=== PATIENT | male | born 1985 | race Caucasian/White ===

== ENCOUNTER 2019-01-05 01:42 | Emergency (ER) | payer OTHER ==
[2019-01-05] MEDS ORDERED: METHYLPREDNISOLONE 125 MG INJ ONE (02:11)
[2019-01-05] MEDS ORDERED: NA CHLORIDE 0.9% 1,000 ML ONE (02:12)
[2019-01-05] MEDS ORDERED: DIPHENHYDRAMINE 50 MG/ML VIAL ONE (02:12)
[2019-01-05] MEDS ORDERED: FAMOTIDINE 20 MG/2 ML VIAL IV ONE (02:12)
[2019-01-05] MEDS ORDERED: predniSONE 20 MG TAB ONE (02:12)
[2019-01-05 02:29] LABS: Basophils % 1.1 % (0-1.3); Eosinophils % 4.3 % (0-4.4); Hematocrit 41.7 % (39.6-49.0); Lymphocytes % 44.6 % (15.3-44.8); MPV 8.4 fL (7.6-11.3); Monocytes % 8.5 % (3.3-12.3); RBC Red Blood Cell Count 4.53 M/uL (4.33-5.43)
[2019-01-05 02:47] LABS: ALT/SGPT 34 U/L (12-78); AST/SGOT 22 U/L (15-37); Alkaline Phosphatase 68 U/L (45-117); BUN Blood Urea Nitrogen 12 mg/dL (7-18); Bicarbonate 28 mmol/L (21-32); Bilirubin Total 0.4 mg/dL (0.2-1.0); Glucose Level 98 mg/dL (74-106); Potassium 3.5 mmol/L (3.5-5.1); Protein, Total 7.3 g/dL (6.4-8.2); Sodium Level 141 mmol/L (136-145)
--- NOTE | 2019-01-05 02:59 | ER ---
Nurse's Notes [facility] Name: Juanito Dawn Age: 34 yrs Sex: Male : 1985 Arrival Date: 01/05/2019 Time: 01:44 Bed 7 Private MD: Diagnosis: Nonmedicinal substance allergy status;Allergy status, other than to drugs and biological substances Presentation: 01/05 01:51 Presenting complaint: Patient states: "I went to bed and the corner of my lip was jd3 swelling. I woke up just now and it was worse.". Transition of care: patient was not received from another setting of care. Onset: The symptoms/episode began/occurred 2200 yesterday night. Anaphylaxis evaluation, no signs or symptoms of anaphylaxis were noted. Onset of symptoms was January 05, 2019. Risk Assessment: Do you want to hurt yourself or someone else? Patient reports no desire to harm self or others. Initial Sepsis Screen: Does the patient meet any 2 criteria? No. Patient's initial sepsis screen is negative. Does the patient have a suspected source of infection? No. Patient's initial sepsis screen is negative. Care prior to arrival: None. 01:51 Acuity: JARETT 3 jd3 01:51 Method Of Arrival: Ambulatory jd3 Triage Assessment: 01:56 General: Appears in no apparent distress. uncomfortable, Behavior is calm, cooperative, jd3 appropriate for age. Pain: Denies pain. Historical: - Allergies: 01:54 No Known Allergies; jd3 - Home Meds: 01:54 Zoloft Oral [Active]; Imitrex Oral [Active]; jd3 - PSHx: 01:54 None; jd3 - Immunization history:: Adult Immunizations up to date. - Social history:: Smoking status: Patient/guardian denies using tobacco. - Family history:: not pertinent. - Ebola Screening: : Patient negative for fever greater than or equal to 101.5 degrees Fahrenheit, and additional compatible Ebola Virus Disease symptoms. Screenin:50 Abuse screen: Denies threats or abuse. Nutritional screening: No deficits noted. bb Tuberculosis screening: No symptoms or risk factors identified. Fall Risk None identified. Assessment: 01:50 General: Appears in no apparent distress. uncomfortable, Behavior is calm, cooperative, bb Reports swelling to upper lip and face. Pain: Denies pain. Neuro: Level of Consciousness is awake, alert, obeys commands, Oriented to person, place, time, situation. Cardiovascular: Heart tones S1 S2 present Capillary refill < 3 seconds Patient's skin is warm and dry. Respiratory: Airway is patent Respiratory effort is even, unlabored, Respiratory pattern is regular, Breath sounds are clear bilaterally. GI: No signs and/or symptoms were reported involving the gastrointestinal system. EENT: angioedema noted with swelling to upper lip and face. Derm: Skin is pink, warm \\T\\ dry. Musculoskeletal: Circulation, motion, and sensation intact. 01:50 EENT: no swelling to tongue. bb 03:02 Reassessment: Patient and/or family updated on plan of care and expected duration. Pain bb level reassessed. Patient is alert, oriented x 3, equal unlabored respirations, skin warm/dry/pink. edema to upper lip and face has decreased significantly. 03:08 Reassessment: Patient appears in no apparent distress at this time. Patient and/or jd3 family updated on plan of care and expected duration. Pain level reassessed. Patient is alert, oriented x 3, equal unlabored respirations, skin warm/dry/pink. decrease swelling noted in lips. Patient states feeling better. Respiratory: Airway is patent Respiratory effort is even, unlabored, Respiratory pattern is regular, symmetrical, Denies cough, shortness of breath. Vital Signs: 01:54 BP 125 / 81; Pulse 68; Resp 19 S; Pulse Ox 98% on R/A; Weight 61.23 kg (R); Height 5 jd3 ft. 1 in. (157 cm) (R); Pain 0/10; 02:22 BP 121 / 88; Pulse 71; Resp 16 S; Pulse Ox 100% on R/A; bb 01:54 Body Mass Index 24.84 (61.23 kg, 157 cm) d3 ED Course: 01:44 Patient arrived in ED. am2 01:46 Delbert Taveras MD is Attending Physician. miguelito 01:50 Patient has correct armband on for positive identification. Bed in low position. Call bb light in reach. Side rails up X 1. Pulse ox on. NIBP on. Warm blanket given. Pillow given. 01:53 Triage completed. j 01:55 Initial lab(s) drawn, by me, sent to lab. Inserted saline lock: 20 gauge in right bb antecubital area, using aseptic technique. Blood collected. 01:56 Arm band placed on. jd3 02:17 Grecia Kwan, RN is Primary Nurse. bb 03:09 No provider procedures requiring assistance completed. IV discontinued, intact, jd3 bleeding controlled, No redness/swelling at site. Pressure dressing applied. Administered Medications: 01:51 Drug: Benadryl 50 mg Route: IVP; Site: right antecubital; bb 03:01 Follow up: Response: Marked relief of symptoms bb 01:55 Drug: Pepcid 40 mg Route: IVP; Site: right antecubital; bb 03:01 Follow up: Response: Marked relief of symptoms bb 01:56 Drug: SOLU-Medrol 125 mg Route: IVP; Site: right antecubital; bb 03:02 Follow up: Response: Marked relief of symptoms bb 02:00 Drug: NS 0.9% 1000 ml Route: IV; Rate: 1 bolus; Site: right antecubital; bb 03:02 Follow up: IV Status: Order to discontinue infusion; IV Intake: 500ml bb 02:00 Drug: predniSONE 60 mg Route: PO; bb 03:02 Follow up: Response: Marked relief of symptoms bb Intake: 03:02 IV: 500ml; Total: 500ml. bb Outcome: 02:59 Discharge ordered by . miguelito 03:09 Discharged to home ambulatory, with family. jd3 03:09 Condition: stable 03:09 Discharge instructions given to patient, Instructed on discharge instructions, follow up and referral plans. medication usage, Demonstrated understanding of instructions, follow-up care, medications, Prescriptions given X 4. 03:10 Patient left the ED. jd3 Signatures: Delbert Taveras MD MD cha Ballard, Brenda, RN RN Kristy Nicolas Jonathon, RN RN jd3
--- NOTE | 2019-01-05 02:59 | EDPHYS ---
Physician Documentation [facility] Name: Juanito Dawn Age: 34 yrs Sex: Male : 1985 Arrival Date: 01/05/2019 Time: 01:44 Bed 7 Private MD: ED Physician Delbert Taveras HPI: 01/05 01:52 This 34 yrs old Male presents to ER via Unassigned with complaints of Lips miguelito Swelling, Allergic Reaction. 01:52 The problem is located in the right cheek and mouth. Onset: The symptoms/episode miguelito began/occurred just prior to arrival, last night. Duration: The symptoms are continuous, and are steadily getting worse. Modifying factors: The symptoms are alleviated by nothing, the symptoms are aggravated by nothing. Associated signs and symptoms: The patient has no apparent associated signs or symptoms. Severity of symptoms: At their worst the symptoms were mild, moderate, in the emergency department the symptoms have resolved. The patient has not experienced similar symptoms in the past. Historical: - Allergies: 01:54 No Known Allergies; jd3 - Home Meds: 01:54 Zoloft Oral [Active]; Imitrex Oral [Active]; jd3 - PSHx: 01:54 None; jd3 - Immunization history:: Adult Immunizations up to date. - Social history:: Smoking status: Patient/guardian denies using tobacco. - Family history:: not pertinent. - Ebola Screening: : Patient negative for fever greater than or equal to 101.5 degrees Fahrenheit, and additional compatible Ebola Virus Disease symptoms. ROS: 01:52 Constitutional: Negative for fever, chills, and weight loss, Eyes: Negative for injury, miguelito pain, redness, and discharge, Neck: Negative for injury, pain, and swelling, Cardiovascular: Negative for chest pain, palpitations, and edema, Respiratory: Negative for shortness of breath, cough, wheezing, and pleuritic chest pain, Abdomen/GI: Negative for abdominal pain, nausea, vomiting, diarrhea, and constipation, Back: Negative for injury and pain, : Negative for injury, bleeding, discharge, and swelling, MS/Extremity: Negative for injury and deformity, Skin: Negative for injury, rash, and discoloration, Neuro: Negative for headache, weakness, numbness, tingling, and seizure. 01:52 ENT: Positive for right upper lip swelling. Exam: 01:52 Constitutional: This is a well developed, well nourished patient who is awake, alert, miguelito and in no acute distress. Eyes: Pupils equal round and reactive to light, extra-ocular motions intact. Lids and lashes normal. Conjunctiva and sclera are non-icteric and not injected. Cornea within normal limits. Periorbital areas with no swelling, redness, or edema. ENT: Nares patent. No nasal discharge, no septal abnormalities noted. Tympanic membranes are normal and external auditory canals are clear. Oropharynx with no redness, swelling, or masses, exudates, or evidence of obstruction, uvula midline. Mucous membranes moist. Neck: Trachea midline, no thyromegaly or masses palpated, and no cervical lymphadenopathy. Supple, full range of motion without nuchal rigidity, or vertebral point tenderness. No Meningismus. Chest/axilla: Normal chest wall appearance and motion. Nontender with no deformity. No lesions are appreciated. Cardiovascular: Regular rate and rhythm with a normal S1 and S2. No gallops, murmurs, or rubs. Normal PMI, no JVD. No pulse deficits. Respiratory: Lungs have equal breath sounds bilaterally, clear to auscultation and percussion. No rales, rhonchi or wheezes noted. No increased work of breathing, no retractions or nasal flaring. Abdomen/GI: Soft, non-tender, with normal bowel sounds. No distension or tympany. No guarding or rebound. No evidence of tenderness throughout. Back: No spinal tenderness. No costovertebral tenderness. Full range of motion. Male : Normal genitalia with no discharge or lesions. Skin: Warm, dry with normal turgor. Normal color with no rashes, no lesions, and no evidence of cellulitis. MS/ Extremity: Pulses equal, no cyanosis. Neurovascular intact. Full, normal range of motion. Neuro: Awake and alert, GCS 15, oriented to person, place, time, and situation. Cranial nerves II-XII grossly intact. Motor strength 5/5 in all extremities. Sensory grossly intact. Cerebellar exam normal. Normal gait. Psych: Awake, alert, with orientation to person, place and time. Behavior, mood, and affect are within normal limits. 01:52 Head/face: Noted is swelling, that is moderate, of the right cheek and mouth. Vital Signs: 01:54 BP 125 / 81; Pulse 68; Resp 19 S; Pulse Ox 98% on R/A; Weight 61.23 kg (R); Height 5 jd3 ft. 1 in. (157 cm) (R); Pain 0/10; 02:22 BP 121 / 88; Pulse 71; Resp 16 S; Pulse Ox 100% on R/A; bb 01:54 Body Mass Index 24.84 (61.23 kg, 157 cm) jd3 MDM: 01:47 Patient medically screened. [facility] 01:57 Data reviewed: vital signs, nurses notes, old medical records. [facility] 01/05 01:52 Order name: CBC with Diff [facility] 01/05 01:52 Order name: Comprehensive Metabolic Panel; Complete Time: 02:58 [facility] 01/05 02:31 Order name: Manual Differential EDMS Administered Medications: 01:51 Drug: Benadryl 50 mg Route: IVP; Site: right antecubital; bb 03:01 Follow up: Response: Marked relief of symptoms bb 01:55 Drug: Pepcid 40 mg Route: IVP; Site: right antecubital; bb 03:01 Follow up: Response: Marked relief of symptoms bb 01:56 Drug: SOLU-Medrol 125 mg Route: IVP; Site: right antecubital; bb 03:02 Follow up: Response: Marked relief of symptoms bb 02:00 Drug: NS 0.9% 1000 ml Route: IV; Rate: 1 bolus; Site: right antecubital; bb 03:02 Follow up: IV Status: Order to discontinue infusion; IV Intake: 500ml bb 02:00 Drug: predniSONE 60 mg Route: PO; bb 03:02 Follow up: Response: Marked relief of symptoms bb Disposition: 01/05/19 02:59 Discharged to Home. Impression: Nonmedicinal substance allergy status, Allergy status, other than to drugs and biological substances. - Condition is Fair. - Discharge Instructions: Allergies, Adult, Angioedema, Angioedema, [id number], Allergies, [id number]. - Prescriptions for Benadryl 25 mg Oral Capsule - take 2 capsule by ORAL route every 6 hours As needed; 45 tablet. Pepcid 20 mg Oral Tablet - take 1 tablet by ORAL route every 12 hours for 10 days; 20 tablet. Prednisone 20 mg Oral Tablet - take 3 tablet by ORAL route once daily for 5 days; 15 tablet. EpiPen 0.3 mg Injection auto- injector - inject 1 pen by INTRAMUSCULAR route as directed Inject into the outer portion of the thigh, through clothing if necessary. Indicated in the emergency treatment of allergic reactions; 1 Container. - Medication Reconciliation Form, Thank You Letter, Antibiotic Education, Prescription Opioid Use form. - Follow up: Private Physician; When: 2 - 3 days; Reason: Recheck today's complaints, Continuance of care, Re-evaluation by your physician. - Problem is new. - Symptoms have improved. Signatures: Dispatcher [employer] EDMO Delbert Taveras MD MD cha Ballard, Brenda RN RN Bijan Andrews RN RN jd3 Corrections: (The following items were deleted from the chart) 03:10 02:59 01/05/2019 02:59 Discharged to Home. Impression: Nonmedicinal substance allergy jd3 status; Allergy status, other than to drugs and biological substances. Condition is Fair. Discharge Instructions: Allergies, Adult, Angioedema, Angioedema, [id number], Allergies, [id number]. Prescriptions for Benadryl 25 mg Oral Capsule - take 2 capsule by ORAL route every 6 hours As needed; 45 tablet, Pepcid 20 mg Oral Tablet - take 1 tablet by ORAL route every 12 hours for 10 days; 20 tablet, Prednisone 20 mg Oral Tablet - take 3 tablet by ORAL route once daily for 5 days; 15 tablet, EpiPen 0.3 mg Injection auto-injector - inject 1 pen by INTRAMUSCULAR route as directed Inject into the outer portion of the thigh, through clothing if necessary. Indicated in the emergency treatment of allergic reactions; 1 Container. and Forms are Medication Reconciliation Form, Thank You Letter, Antibiotic Education, Prescription Opioid Use. Follow up: Private Physician; When: 2 - 3 days; Reason: Recheck today's complaints, Continuance of care, Re-evaluation by your physician. Problem is new. Symptoms have improved. miguelito
[2019-01-05 03:24] LABS: Blood Morphology Comment NOT SEEN (NOT SEEN); Platelet Estimate ADEQ
== END 2019-01-05 03:10 | disposition home or self-care (01) ==
LOC: ER 01:42
DX: R22.9 Localized swelling, mass and lump, unspecified (principal); Z88.8 Allergy status to other drugs, medicaments and biological substances; Z91.048 Other nonmedicinal substance allergy status
CPT/HCPCS: 36415; 80053; 85025; 96361; 96374; 96375; 99284; J2930; J7030; J7512

== ENCOUNTER 2024-07-28 22:19 | Emergency (ER) | payer OTHER ==
[2024-07-28] MEDS ORDERED: ONDANSETRON 4 MG/2 ML VIAL ONE (22:40)
[2024-07-28] MEDS ORDERED: MORPHINE 4 MG/ML SYR ONE (22:41)
[2024-07-28] MEDS ORDERED: KETOROLAC 30 MG/ML INJ ONE (22:41)
[2024-07-28] MEDS ORDERED: NA CHLORIDE 0.9% 1,000 ML ONE (22:41)
[2024-07-28 23:20] LABS: Absolute Basophils 0.1 K/uL (0-0.5); Absolute Eosinophils 0.2 K/uL (0-0.5); Absolute Lymphocytes (CBC) 2.7 K/uL (0.7-4.9); Absolute Monocytes 0.9 K/uL (0.1-1.3); Absolute Neutrophil 8.4 K/uL (1.8-8.0); Basophils % 0.9 % (0-1.3); Eosinophils % 1.2 % (0-4.4); Hematocrit 44.3 % (39.6-49.0); Lymphocytes % 22.2 % (15.3-44.8); MCH 30.4 pg (27.0-35.0); MCV 89.5 fL (80-100); MPV 8.2 fL (7.6-11.3); Monocytes % 7.5 % (3.3-12.3); Neutrophils % 68.2 % (41.7-73.7); Nucleated Red Blood Cells % 0.1 % (0-0); Platelets 384 thou/uL (152-406); RBC Red Blood Cell Count 4.95 M/uL (4.33-5.43)
[2024-07-28 23:31] LABS: Albumin/Globulin Ratio 0.9 (1.1-1.8); Anion Gap 12.9 mEq/L (5.0-15.0); Bilirubin Total 0.2 mg/dL (0.2-1.0); Globulin 4.3 g/dL (2.3-3.5); Potassium 3.9 mEq/L (3.5-5.1); Protein, Total 8.3 g/dL (6.4-8.2)
[2024-07-29 00:02] LABS: Calcium Oxalate Crystals- Ur Few /HPF (None Seen); Specific Gravity 1.025 (1.005-1.030); Sqamous Epithelial <5 /HPF (None Seen); Urine Bacteria <20 /HPF (<20); Urine Bilirubin NEGATIVE (Negative); Urine Blood 2+ (Negative); Urine Clarity Extremely Turbid (Clear); Urine Color Light-Yellow (Yellow); Urine Culture Reflex Order NOT NEEDED; Urine Glucose NEGATIVE (Negative); Urine Ketones NEGATIVE (Negative); Urine Microscopic Reflex YN ORDER UMIC; Urine Mucus Slight /HPF (None Seen); Urine Nitrite NEGATIVE (Negative); Urine Protein TRACE (Negative); Urine RBC 21-50 /HPF (None Seen); Urine Urobilinogen Normal (Normal); Urine WBC <5 /HPF (<5); Urine pH 5.5 (5.0-7.0)
--- NOTE | 2024-07-29 01:04 | EDPHYS ---
Physician Documentation [facility] Name: Juanito Dawn Age: 39 yrs Sex: Male : 1985 Arrival Date: 07/28/2024 Time: 22:19 Bed 4 Private MD: ED Physician Ernie Renner HPI: 07/28 23:35 This 39 yrs old Male presents to ER via Ambulatory with complaints of Possible Kidney kb Stone, Nausea/Vomiting, Abdominal Pain. 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 States he has had similar symptoms in the past due to a kidney stone. Denies any symptoms leading up to these. Denies fever. . Historical: - Allergies: 22:50 No Known Allergies; vc1 - PMHx: 22:50 kidney stones; vc1 - PSHx: 22:50 None; vc1 - Immunization history:: Client reports receiving the 2nd dose of the Covid vaccine, Flu vaccine is up to date. - Infectious Disease History:: Denies. - Social history:: Smoking status: Patient denies any tobacco usage or history of. ROS: 23:36 Constitutional: As per HPI kb Exam: 23:36 Head/Face: Normocephalic, atraumatic. ENT: Moist Mucous membranes Cardiovascular: kb Regular rate Respiratory: Respirations even and unlabored. No increased work of breathing. Talking in full sentences Abdomen/GI: Soft, non-tender. No distention Back: No spinal tenderness. No costovertebral tenderness. Full range of motion. Skin: Warm, dry with normal turgor. Normal color. MS/ Extremity: Pulses equal, no cyanosis. Neurovascular intact. Full, normal range of motion. Neuro: Awake and alert, GCS 15, oriented to person, place, time, and situation. 23:36 Constitutional: The patient appears alert, awake, uncomfortable, Vital Signs: 22:48 BP 126 / 102; Pulse 86; Resp 20; Temp 97.9; Pulse Ox 97% ; Weight 70.31 kg; Height 5 vc1 ft. 3 in. ; Pain 10/10; 22:48 Body Mass Index 27.46 (70.31 kg, 160.02 cm) vc1 22:48 Pain Scale: Adult vc1 Hazard Coma Score: 22:50 Eye Response: spontaneous(4). Motor Response: obeys commands(6). Verbal Response: ay oriented(5). Total: 15. MDM: 22:29 Medical Screening Exam initiated kb 07/29 01:03 Differential diagnosis: uti, kidney stone. Data reviewed: vital signs, nurses notes. kb Historians other than the Patient: Spouse/Significant Other: . Counseling: I had a detailed discussion with the patient and/or guardian regarding the historical points, exam findings, and any diagnostic results supporting the discharge/admit diagnosis, lab results, radiology results, the need for outpatient follow up, a urologist, to return to the emergency department if symptoms worsen or persist or if there are any questions or concerns that arise at home. Response to treatment: the patient's symptoms have markedly improved after treatment. 07/28 22:36 Order name: CBC with Diff; Complete Time: 23:22 kb 07/28 22:36 Order name: CMP; Complete Time: 23:32 kb 07/28 22:36 Order name: Lipase; Complete Time: 23:32 kb 07/28 22:36 Order name: Urinalysis w/ reflexes; Complete Time: 00:04 kb 07/28 22:36 Order name: CT Stone Protocol kb 07/28 22:36 Order name: IV Saline Lock; Complete Time: 22:49 kb 07/28 22:36 Order name: Labs collected and sent; Complete Time: 22:50 kb Administered Medications: 07/28 22:49 Drug: TORadol - Ketorolac IVP 15 mg IVP once Route: IVP; Site: right antecubital; ay 07/29 01:20 Follow up: Response: No adverse reaction ay 07/28 22:49 Drug: Ondansetron IVP 4 mg IVP once; over 2 minutes Route: IVP; Site: right antecubital;ay 07/29 01:19 Follow up: Response: No adverse reaction 07/28 22:49 Drug: morphine IVP or IV 4 mg IVP once over 4 mins Route: IVP; Infused Over: 4 mins; ay Site: right antecubital; 07/29 01:20 Follow up: Response: No adverse reaction ay 07/28 22:49 Drug: NS 0.9% IV 1000 ml IV at 1 bolus Per protocol; to be given as a bolus over 60 ay minutes Route: IV; Rate: 1 bolus; Site: right antecubital; 07/29 01:19 Follow up: Response: No adverse reaction; IV Status: Completed infusion; IV Intake: ay 1000ml 01:18 Drug: Flomax PO 0.4 mg PO once Route: PO; ay :19 Follow up: Response: Medication administered at discharge. ay :18 Drug: Jeffrey PO 10 mg-325 mg 1 tabs PO once Route: PO; ay : Follow up: Response: Medication administered at discharge. ay Disposition: 04:37 Co-signature as Attending Physician, Ernie Renner MD I agree with the assessment sp4 and plan of care. I reviewed the patient's care provided by the Advanced Practice Provider and agree with the diagnosis and treatment plan. Disposition Summary: 07/29/24 01:04 Discharge Ordered Notes: Location: Home kb Condition: Stable kb Diagnosis - Calculus of ureter kb Followup: kb - With: Private Physician - When: 2 - 3 days - Reason: Recheck today's complaints, Continuance of care, Re-evaluation by your physician Followup: kb - With: Emergency Department - When: As needed - Reason: Worsening of condition Discharge Instructions: - Discharge Summary Sheet kb - Kidney Stones, [id number] kb - Dietary Guidelines to Help Prevent Kidney Stones kb Forms: - Medication Reconciliation Form kb - Antibiotic Education kb - Prescription Opioid Use kb - Patient Portal Instructions kb - Leadership Thank You Letter kb Prescriptions: - Flomax 0.4 mg Oral capsule - take 1 capsule ORAL route daily; 10 capsule; Refills: 0, Product Selection kb Permitted - Zofran 4 mg Oral tablet - take 1 tablet ORAL route every 6 hours As needed; 20 tablet; Refills: 0, kb Product Selection Permitted - Diclofenac Sodium 75 mg Oral tablet, delayed release (enteric coated) - take 1 tablet ORAL route 2 times per day As needed; 30 tablet; Refills: 0, kb Product Selection Permitted - Tramadol 50 mg Oral Tablet - take 1 tablet ORAL route every 8 hours as needed; 12 tablet; Refills: 0, kb Product Selection Permitted Signatures: Dispatcher [employer] Yuly Anderson, Nat Florian RN RN vc1 Ernie Renner MD MD sp4 William Melgar, RN RN ay Corrections: (The following items were deleted from the chart) 07/28 22:37 22:37 CBC+H.LAB.BRZ ordered. EDMS EDMS 22: 22:37 COMPREHENSIVE METABOLIC PANEL+C.LAB.BRZ ordered. EDMS EDMS 22: 22:37 LIPASE+C.LAB.BRZ ordered. EDMS EDMS : 22:37 Urinalysis+U.LAB.BRZ ordered. EDMS EDMS
--- NOTE | 2024-07-29 01:04 | ER ---
Nurse's Notes [facility] Name: Juanito Dawn Age: 39 yrs Sex: Male : 1985 Arrival Date: 07/28/2024 Time: 22:19 Bed 4 Private MD: Diagnosis: Calculus of ureter Presentation: 07/28 22:48 Chief complaint: Patient states: I think I have a kidney stone, pain in lower abdomen vc1 that radiates to left lower back with vomiting for 2 hours. Coronavirus screen: Client denies travel out of the [place] in the last 14 days. At this time, the client does not indicate any symptoms associated with coronavirus-19. Ebola Screen: Patient negative for fever greater than or equal to 101.5 degrees Fahrenheit, and additional compatible Ebola Virus Disease symptoms Patient denies exposure to infectious person. Patient denies travel to an Ebola-affected area in the 21 days before illness onset. No symptoms or risks identified at this time. Initial Sepsis Screen: Does the patient meet any 2 criteria? No. Patient's initial sepsis screen is negative. Does the patient have a suspected source of infection? No. Patient's initial sepsis screen is negative. Risk Assessment: Do you want to hurt yourself or someone else? Patient reports no desire to harm self or others. Onset of symptoms was July 28, 2024 at 20:30. Care prior to arrival: None. Activity prior to arrival: vomiting. Mechanism of Injury: No Mechanism of Injury. Transition of care: patient was not received from another setting of care. 22:48 Method Of Arrival: Ambulatory vc1 22:48 Acuity: JARETT 3 vc1 Triage Assessment: 22:51 General: Appears distressed, uncomfortable, slender, well groomed, well developed, well vc1 nourished, Behavior is calm, cooperative, appropriate for age. Pain: Complains of pain in right lower quadrant and left lower quadrant Pain radiates to left low back Pain currently is 10 out of 10 on a pain scale. Quality of pain is described as sharp, Pain began suddenly, 2 hours ago. Noted to be grimacing, restless, Also complains of nausea, vomiting. EENT: No deficits noted. No signs and/or symptoms were reported regarding the EENT system. Neuro: Level of Consciousness is awake, alert, obeys commands, Oriented to person, place, time, situation, Appropriate for age. Cardiovascular: Capillary refill < 3 seconds Patient's skin is warm and dry. Respiratory: Airway is patent Respiratory effort is even, unlabored, Respiratory pattern is regular, symmetrical. GI: Abdomen is flat, non-distended, Reports lower abdominal pain, nausea, Pain is 10 out of 10 on a pain scale. vomiting. : Reports inability to void, pain in left in bilateral lower quadrant(s) in lower back urgency. Derm: Skin is intact, Skin is dry, Skin is normal, Skin temperature is warm. Musculoskeletal: Circulation, motion, and sensation intact. Range of motion: intact in all extremities. Historical: - Allergies: 22:50 No Known Allergies; vc1 - PMHx: 22:50 kidney stones; vc1 - PSHx: 22:50 None; vc1 - Immunization history:: Client reports receiving the 2nd dose of the Covid vaccine, Flu vaccine is up to date. - Infectious Disease History:: Denies. - Social history:: Smoking status: Patient denies any tobacco usage or history of. Screenin:50 [facility] ED Fall Risk Assessment (Adult) History of falling in the last 3 months, ay including since admission No falls in past 3 months (0 pts) Confusion or Disorientation No (0 pts) Intoxicated or Sedated No (0 pts) Impaired Gait No (0 pts) Mobility Assist Device Used No (0 pt) Altered Elimination No (0 pt) Score/Fall Risk Level 0 - 2 = Low Risk Oriented to surroundings, Maintained a safe environment, Educated pt \T\ family on fall prevention, incl call for assistance when getting out of bed. 22:51 Abuse screen: Denies threats or abuse. Nutritional screening: No deficits noted. vc1 Tuberculosis screening: No symptoms or risk factors identified. Assessment: 22:50 General: Appears distressed, uncomfortable, Behavior is cooperative, restless. Pain: ay Complains of pain in lower abdomen, lower left back Pain currently is 10 out of 10 on a pain scale. Pain began 2 hours ago. Neuro: Level of Consciousness is awake, alert, obeys commands, Oriented to person, place, time, situation, Speech is normal. Cardiovascular: Capillary refill < 3 seconds. Respiratory: Airway is patent Respiratory effort is even, unlabored, Respiratory pattern is regular, symmetrical. GI: Bowel sounds present X 4 quads. Abd is soft X 4 quads Abdomen is tender to palpation in left lower quadrant and right lower quadrant. : Reports burning with urination, since 2 hours ago. EENT: No signs and/or symptoms were reported regarding the EENT system. Derm: No signs and/or symptoms reported regarding the dermatologic system. Vital Signs: 22:48 BP 126 / 102; Pulse 86; Resp 20; Temp 97.9; Pulse Ox 97% ; Weight 70.31 kg; Height 5 vc1 ft. 3 in. ; Pain 10/10; 22:48 Body Mass Index 27.46 (70.31 kg, 160.02 cm) vc1 22:48 Pain Scale: Adult vc1 [place] Coma Score: 22:50 Eye Response: spontaneous(4). Motor Response: obeys commands(6). Verbal Response: ay oriented(5). Total: 15. ED Course: 22:23 Patient arrived in ED. gm2 22:29 Yuly Mccarthy FNP-C [facility]. kb 22:29 Ernie Renner MD is Attending Physician. kb 22:48 William Melgar RN is Primary Nurse. ay 22:50 Triage completed. vc1 22:50 CBC with Diff Sent. ay 22:50 CMP Sent. ay 22:50 Lipase Sent. ay 22:50 Inserted saline lock: 22 gauge in right antecubital area, using aseptic technique. ay 22:50 Patient has correct armband on for positive identification. Bed in low position. Call ay light in reach. Adult w/ patient. 23:54 CT Stone Protocol In Process Unspecified. EDMS 07/29 01:20 No provider procedures requiring assistance completed. IV discontinued, intact, ay bleeding controlled, No redness/swelling at site. Pressure dressing applied. 01:20 Provided Education on: plan of care. ay Administered Medications: 07/28 22:49 Drug: TORadol - Ketorolac IVP 15 mg IVP once Route: IVP; Site: right antecubital; ay 07/29 01:20 Follow up: Response: No adverse reaction ay 07/28 22:49 Drug: Ondansetron IVP 4 mg IVP once; over 2 minutes Route: IVP; Site: right antecubital;ay 07/29 01:19 Follow up: Response: No adverse reaction ay 07/28 22:49 Drug: morphine IVP or IV 4 mg IVP once over 4 mins Route: IVP; Infused Over: 4 mins; ay Site: right antecubital; 07/29 01:20 Follow up: Response: No adverse reaction ay 07/28 22:49 Drug: NS 0.9% IV 1000 ml IV at 1 bolus Per protocol; to be given as a bolus over 60 ay minutes Route: IV; Rate: 1 bolus; Site: right antecubital; 07/29 01:19 Follow up: Response: No adverse reaction; IV Status: Completed infusion; IV Intake: ay 1000ml 01:18 Drug: Flomax PO 0.4 mg PO once Route: PO; ay : Follow up: Response: Medication administered at discharge. ay : Drug: [place] PO 10 mg-325 mg 1 tabs PO once Route: PO; ay : Follow up: Response: Medication administered at discharge. ay Medication: :20 VIS not applicable for this client. ay Intake: :19 IV: 1000ml; Total: 1000ml. ay Outcome: 01:04 Discharge ordered by . kb 01:20 Discharged to home ambulatory, ay :20 Condition: stable 01:20 Discharge instructions given to patient, Instructed on discharge instructions, follow up and referral plans. medication usage, Demonstrated understanding of instructions, follow-up care, medications, Prescriptions given X 4, :22 Patient left the ED. ay Signatures: Dispatcher [employer] EDMS Yuly Mccarthy, CONY-Ratna DONNELLY-Nat Brito RN RN Edwige Amador 2 William Melgar RN RN ay
[2024-07-29] MEDS ORDERED: TAMSULOSIN 0.4 MG SR CAP ONE (01:10)
[2024-07-29] MEDS ORDERED: HYDROCODONE/APAP 10/325 TAB ONE (01:11)
--- NOTE | 2024-07-29 01:13 | RAD REPORT ---
EXAM: CT Abdomen and Pelvis Without Intravenous Contrast CLINICAL HISTORY: The patient is 39 years old and is Male; FLANK PAIN TECHNIQUE: Axial computed tomography images of the abdomen and pelvis without intravenous contrast. Sagittal and coronal reformatted images were created and reviewed. This CT exam was performed using one or more of the following dose reduction techniques: automated exposure control, adjustment of the m A and/or kV according to patient size, and/or use of iterative reconstruction technique. COMPARISON: No relevant prior studies available. FINDINGS: LUNG BASES: Unremarkable. No mass. No consolidation. ABDOMEN: LIVER: The liver is enlarged and mildly fatty. GALLBLADDER AND BILE DUCTS: No calcified stones. No ductal dilation. PANCREAS: Unremarkable. No ductal dilation. SPLEEN: Unremarkable. ADRENALS: Unremarkable. No mass. KIDNEYS AND URETERS: Mild left hydroureteronephrosis with associated stranding is present seconda ry to a 0.6 cm distal left ureteral calculus. Edema of the left kidney is noted. Right intrarenal calcification is present. There is no hydronephrosis or hydroureter of the right kidney. STOMACH AND BOWEL: The stomach is minimally distended with fluid. The small bowel is normal in ca liber. Stool is present throughout the colon. A few scattered colonic diverticula are noted without surrounding inflammation. There is no mucosal thickening or evidence of obstruction. PELVIS: APPENDIX: The appendix is normal in caliber without surrounding inflammation. BLADDER: The bladder is nearly empty. No stones. REPRODUCTIVE: Unremarkable as visualized. ABDOMEN and PELVIS: INTRAPERITONEAL SPACE: Unremarkable. No free air. No significant fluid collection. BONES/JOINTS: No acute fracture. SOFT TISSUES: The soft tissues are normal. VASCULATURE: Unremarkable. No abdominal aortic aneurysm. LYMPH NODES: Unremarkable. No enlarged lymph nodes. IMPRESSION: Mild left hydroureteronephrosis with associated stranding is present secondary to a 0.6 cm distal l eft ureteral calculus. Electronically signed by: Colette Shipman MD 07/29/2024 12:49 AM [facility] Due to temporary technical issues with the PACS/[employer] reporting system, reports are being santiago d by the in-house radiologist without review as a courtesy to ensure prompt reporting the interpreting radiologist is fully responsible for the content of the report. Transcribed Date/Time: 07/29/2024 1:13 AM
[2024-07-29 05:38] VITALS: BP 126/102; TEMP 97.9; O2SAT 97
== END 2024-07-29 01:22 | disposition home or self-care (01) ==
LOC: ER 22:19
DX: N20.1 Calculus of ureter (principal); Z87.442 Personal history of urinary calculi
CPT/HCPCS: 96361; 85025; 81001; 36415; 83690; 80053; 76377; 74176; 96375; 96374; 99284; J2405; J7030